=== PATIENT | female | born 1965 | race African-American/Black ===

== ENCOUNTER 2017-02-16 18:19 | Emergency (ER) | payer BC ==
--- NOTE | 2017-02-16 18:50 | ERNOTE ---
Lower Extremity HPI - Narrative Date of Service: 02/16/17 - General Lower Extremities Pain: leg: right Time Seen by Provider: 02/16/17 18:36 Source: patient Exam Limitations: no limitations - Immun/Allergies/Home Medications Immunizations: IMMUNIZATION HX Immunizations Up to Date Yes History of Influenza Vaccine Yes Hx Pneumococcal Vaccination Yes Allergies/Adverse Reactions: Allergies Allergy/AdvReac Type Severity Reaction Status Date / Time propranolol AdvReac Mild Other Verified 01/28/16 13:22 propranolol HCl AdvReac Mild Other Verified 01/28/16 13:22 [From Inderal [place]] Home Medications: HOME MEDICATIONS Multivitamins [Multivitamin Hilary] 1 cap PO DAILY 01/28/16 [Last Taken Unknown] Omeprazole 10 mg PO DAILY 02/16/17 [Last Taken Unknown] amLODIPine BESYLATE [Norvasc] 5 mg PO DAILY 02/16/17 [Last Taken Unknown] - History of Present Illness Narrative: Pt. comes in with c/o R toe numbness and R thigh cramping. Pt. states that she also has swelling in her R foot that is intermittent and resolved at this time. Pt. denies any SOB, CP, NVD, fever, recent illness, but denies any similar history however a similar history on the L side is recorded multiple times with multiple venous doppler scans and negative results. Review of Systems - Review of Systems Constitutional: Present: no symptoms reported. Absent: recent illness, fever, chills, weakness, fatigue, malaise EYE: Present: no symptoms reported ENT: Present: no symptoms reported Respiratory: Present: no symptoms reported. Absent: shortness of breath, cough , wheezing Cardiology: Present: no symptoms reported. Absent: chest pain, palpitations, edema Gastrointestinal/Abdominal: Present: no symptoms reported. Absent: nausea, vomiting, diarrhea Genitourinary: Present: no symptoms reported Musculoskeletal: Present: muscle pain - R thigh Skin: Present: no symptoms reported. Absent: rash, change in color Neurological: Present: numbness - R toes all of them All Other Systems: All systems neg except as marked - Patient's Past Medical History Patient History - Medical: GERD, Other Patient History - Cardiac/Respiratory: Hypertension Patient History - Cancer: No Hx of Cancer Patient History - Surgical Procedures: Colonoscopy, Hysterectomy, Tubal Ligation Patient History - Other: None - Family History Father Family History - Medical: , No pertinent hx Family History - Cardiac/Respiratory: Myocardial Infarction Mother Family History - Medical: No pertinent hx Family History - Cardiac/Respiratory: Other Brother Family History - Medical: No pertinent hx Family History - Cardiac/Respiratory: Hypertension - Social History Living Situations: spouse Abuse History: No History of abuse Psych History: No pertinent hx Do you dip or chew tobacco: No Alcohol Use: none Drug Use: none - Immunizations Immunizations Up to Date: Yes Hx Pneumococcal Vaccination: Yes History of Influenza Vaccine: Yes Physical Exam - Physical Exam General Appearance: Present: wd/wn, alert, no apparent distress Head Exam: Present: normal inspection, no evidence of injury Eye Exam: Normal inspection: bilateral, PERRL: bilateral, EOMI: bilateral Ears, Nose, Throat: Present: normal ENT inspection, normal pharynx Neck: Present: normal inspection, nontender. Absent: lymphadenopathy (R), lymphadenopathy (L) Respiratory: Present: no respiratory distress, normal breath sounds, no accessory muscle use, chest nontender, lungs clear Cardiovascular/Chest: Present: regular rate, rhythm, no murmur, normal peripheral pulses Gastrointestinal/Abdominal: Present: normal bowel sounds, nontender, nondistended, soft, no organomegaly Back Exam: Present: normal inspection, normal range of motion, no CVA tenderness , no vertebral tenderness Extremity Exam: Present: normal inspection, non-tender, normal range of motion, no edema Neurological Exam: Present: alert, oriented, normal mood/affect, no motor/ sensory deficits Skin Exam: Present: normal color, warm/dry. Absent: pallor, skin rash ED Progress - Date and Time Seen: Date and Time: 02/16/17 19:23 As pt. d-dimer is negative and pain pattern is not indicative of blood clot I feel that this is liukely muscle cramping so will have pt. start on naproxen for pain and follow up with PCP in 2-3 days. - Results and Orders Patient's Lab Results:: I have reviewed the patient's lab results. - Vital Signs Patient's Vital Signs:: I have reviewed the patient's vital signs. Vital Signs: Vital Signs 02/16/17 18:29 Temperature 36.8 C Pulse Rate 82 Respiratory 16 Rate Blood Pressure 140/96 O2 Sat by Pulse 97 Oximetry - Progress/Reassessment Chief Complaint: Lower Extremity Pain/ Injury Departure Clinical Impression: Muscle spasm - Departure Disposition: Home self-care Condition: Good Instructions: Muscle Cramps and Spasms, [id number] Additional Instructions: Please increase fluid intake and follow up with Dr Purdy in 2-3 days. May take up to 600mg of Ibuprofen every 6 hours as needed for pain. Referrals: Micaela Purdy DO [Primary Care Provider] -
[2017-02-16 18:53] LABS: Hematocrit 40.4 % (37.0-47.0); Hemoglobin 13.1 gm/dL (12.5-16.0); Mean Cell Volume 85.2 fl (78-100); Mean Corpuscular Hemoglobin 27.6 pg (27-31); Mean Corpuscular Hgb Conc 32.4 g/dl (32-36); Mean Platelet Volume 10.3 fl (6.0-9.5); Neutrophil # 1.8 K/mm3 (1.3-6.0); Neutrophil % 56.8 % (42-75.0); Platelet Count 267 K/mm3 (150-450); Red Blood Count 4.74 M/mm3 (4.2-5.4); White Blood Count 3.2 K/mm3 (4.0-10.5)
[2017-02-16 19:13] LABS: Albumin * 3.7 gm/dl (3.4-5.0); Anion Gap 14.3 mmol/L (6.8-13.8); BUN/Creatinine Ratio 13.8 (9.0-21.6); Bilirubin, Total 0.3 mg/dL (0.0-1.1); Ca. Corrected For Albumin 8.4 mg/dL (8.4-10.2); Calcium * 8.5 mg/dL (7.9-10.9); Carbon Dioxide 25.4 mmol/L (24-32.6); Potassium 3.7 mmol/L (3.4-4.6); Total Protein 7.6 gm/dL (6.2-8.2)
[2017-02-16 20:27] VITALS: BP 144/96
== END 2017-02-16 19:37 | disposition home or self-care (01) ==
LOC: ER 18:19
DX: M62.838 Other muscle spasm (principal); K21.9 Gastro-esophageal reflux disease without esophagitis; I10 Essential (primary) hypertension

== ENCOUNTER 2017-05-28 14:23 | Emergency (ER) | payer BC ==
--- NOTE | 2017-05-28 15:39 | ERNOTE ---
Lower Extremity HPI - General Lower Extremities Pain: leg: left Time Seen by Provider: 05/28/17 15:12 Source: patient Exam Limitations: no limitations - Immun/Allergies/Home Medications Immunizations: IMMUNIZATION HX Immunizations Up to Date Yes History of Influenza Vaccine No Hx Pneumococcal Vaccination Yes Allergies/Adverse Reactions: Allergies Allergy/AdvReac Type Severity Reaction Status Date / Time propranolol AdvReac Mild Other Verified 05/28/17 15:01 propranolol HCl AdvReac Mild Other Verified 05/28/17 15:01 [From Inderal [place]] Home Medications: HOME MEDICATIONS Omeprazole 10 mg PO DAILY 02/16/17 [Last Taken Unknown] Xarelto PO DAILY 05/28/17 [Last Taken Unknown] - History of Present Illness Narrative: PAtient 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 She is starting to recover her leg function slowly. Two weeks go she noticed swelling in her left leg, on 05/21 had a leg doppler that showed an extensive left leg DVT. She was started on xarelto, that day. Her leg swelling seemed to be getting better at first. She has continued physical therapy. Over the last few days she has had increased swelling in the leg, was in rehab today and send over for evaluation. She denies any other concerns besides the leg swelling, no shortness of breath. Method of Injury: Reports: no apparent injury Other Injuries: Reports: none Subsequent Symptoms: Denies: bowel/bladder problem Review of Systems - Review of Systems Constitutional: Present: recent illness. Absent: fever, chills EYE: Absent: double vision ENT: Absent: nose congestion, sore throat Respiratory: Absent: shortness of breath Cardiology: Absent: chest pain, palpitations Gastrointestinal/Abdominal: Absent: nausea, vomiting, abdominal pain Genitourinary: Present: no symptoms reported Musculoskeletal: Present: See HPI, other - leg swelling Neurological: Present: weakness, numbness - since surgery - Patient's Past Medical History Patient History - Medical: GERD, Other Patient History - Cardiac/Respiratory: Deep Vein Thrombosis, Hypertension Patient History - Cancer: Other - spinal Patient History - Surgical Procedures: Back Surgery, Cancer Surgery, Colonoscopy , Hysterectomy, Tubal Ligation Patient History - Other: None - Family History Father Family History - Medical: , No pertinent hx Family History - Cardiac/Respiratory: Myocardial Infarction Mother Family History - Medical: No pertinent hx Family History - Cardiac/Respiratory: Other Brother Family History - Medical: No pertinent hx Family History - Cardiac/Respiratory: Hypertension - Social History Abuse History: No History of abuse Psych History: No pertinent hx Smoking Status: Never smoker - Immunizations Immunizations Up to Date: Yes Hx Pneumococcal Vaccination: Yes History of Influenza Vaccine: No Physical Exam - Physical Exam General Appearance: Present: wd/wn, alert, no apparent distress, obese Respiratory: Present: no respiratory distress, normal breath sounds, no accessory muscle use, lungs clear Cardiovascular/Chest: Present: no murmur, normal peripheral pulses, tachycardia Gastrointestinal/Abdominal: Present: nontender Extremity Exam: Present: normal except - - left thigh significantly more swollen than right Neurological Exam: Present: alert, oriented, normal mood/affect Skin Exam: Present: normal color, warm/dry ED Progress - Results and Orders Patient's Lab Results:: I have reviewed the patient's lab results. - Vital Signs Patient's Vital Signs:: I have reviewed the patient's vital signs. Vital Signs: Vital Signs 05/28/17 14:57 Temperature 36.7 C Pulse Rate 112 H Respiratory 16 Rate Blood Pressure 137/102 O2 Sat by Pulse 96 Oximetry - CT/Ultrasound CT/Ultrasound Narrative: U/S left left: unchanged extensive DVT CTA chest: questionable small PE - Progress/Reassessment Chief Complaint: Lower Extremity Pain/ Injury Progress Note-Subjective: 05/28/17 17:03 patient continues to be tachycardic at rest, will get CTA to rule out PE 05/28/17 20:45 discussed test results Departure Clinical Impression: DVT (deep venous thrombosis) Qualifiers: DVT location: lower extremity Affected thrombotic vein of extremity: femoral Chronicity: acute Laterality: left Qualified Code(s): I82.412 - Acute embolism and thrombosis of left femoral vein Pulmonary embolism Qualifiers: Pulmonary embolism type: other Chronicity: unspecified Acute cor pulmonale presence: without acute cor pulmonale Qualified Code(s): I26.99 - Other pulmonary embolism without acute cor pulmonale - Departure Disposition: Home self-care Condition: Stable Instructions: Deep Vein Thrombosis Additional Instructions: continue your medications as prescribed, call your doctor on Wednesday for follow up do not start your physical therapy again till you are cleared by your doctor Referrals: Micaela Purdy DO [Primary Care Provider] -
[2017-05-28 17:28] LABS: Hematocrit 36.3 % (37.0-47.0); Hemoglobin 11.4 gm/dL (12.5-16.0); Mean Cell Volume 83.4 fl (78-100); Mean Corpuscular Hemoglobin 26.2 pg (27-31); Mean Corpuscular Hgb Conc 31.4 g/dl (32-36); Mean Platelet Volume 9.9 fl (6.0-9.5); Neutrophil # 2.6 K/mm3 (1.3-6.0); Neutrophil % 64.3 % (42-75.0); Platelet Count 363 K/mm3 (150-450); Red Blood Count 4.35 M/mm3 (4.2-5.4); Red Cell Distribution Width 14.3 % (11.5-14.0)
[2017-05-28 17:44] LABS: Albumin * 2.7 gm/dl (3.4-5.0); Anion Gap 8.7 mmol/L (6.8-13.8); BUN/Creatinine Ratio 14.1 (9.0-21.6); Bilirubin, Total 0.3 mg/dL (0.0-1.1); Ca. Corrected For Albumin 9.2 mg/dL (8.4-10.2); Calcium * 8.5 mg/dL (7.9-10.9); Potassium 3.7 mmol/L (3.4-4.6); Total Protein 6.4 gm/dL (6.2-8.2)
[2017-05-28 19:56] VITALS: BP 143/92
== END 2017-05-28 21:10 | disposition home or self-care (01) ==
LOC: ER 14:23
DX: I82.412 Acute embolism and thrombosis of left femoral vein (principal); I26.99 Other pulmonary embolism without acute cor pulmonale